=== PATIENT | female | born 1960 | race African-American/Black ===

== ENCOUNTER 2017-03-15 12:29 | Emergency (ER) | payer MEDICAID ==
[~2017-03-15] VITALS: Ht 152.4 cm; Wt 76.0 kg
[2017-03-15 19:26] LABS: CLARITY URINE CLOUDY (CLEAR); COLOR URINE ORANGE (YELLOW); KETONES URINE 1+ (NEGATIVE); LEUKOCYTE ESTERASE URINE TRACE (NEGATIVE); NITRITE URINE NEGATIVE (NEGATIVE); OCCULT BLOOD URINE 3+ (NEGATIVE); PH URINE 5.5 (4.5-8.0); PROTEIN URINE 3+ (NEGATIVE)
[2017-03-15] MEDS ORDERED: IBUPROFEN 400MG TABLET PO ONE (20:15)
[2017-03-15 20:33] LABS: BASOPHILS % 0.4 % (0.0-2.0); EOSINOPHILS % 2.3 % (0.0-5.0); HEMATOCRIT. 30.2 % (36.0-48.0); HEMOGLOBIN. 9.6 g/dL (12.0-16.0); LYMPHOCYTES % 25.2 % (20.0-50.0); MEAN CORPUSCULAR HEMOGLOBIN 22.2 pg (28.0-32.0); MEAN CORPUSCULAR VOLUME 69.4 fL (81.0-99.0); MEAN PLATELET VOLUME 7.9 fl (7.4-10.4); MONOCYTES % 9.7 % (2.0-8.0); NEUTROPHILS % 62.4 % (40.0-76.0); PLATELET 282 x1000/uL (130-400); RED BLOOD CELL COUNT 4.35 mill/uL (4.2-5.4); RED CELL DISTRIBUTION WIDTH 18.6 % (11.6-14.6)
[2017-03-15 20:38] LABS: CHLORIDE 108 mEq/L (98-107)
[2017-03-15 20:43] LABS: CARBON DIOXIDE 24 mEq/L (21-32)
[2017-03-15 22:30] VITALS: BP 152/77
== END 2017-03-15 22:32 | disposition home or self-care (01) ==
LOC: ER 15:21
DX: N93.9 Abnormal uterine and vaginal bleeding, unspecified (principal); D64.9 Anemia, unspecified; R03.0 Elevated blood-pressure reading, without diagnosis of hypertension
CPT/HCPCS: 36415; 80048; 81001; 81025; 85025; 99284

== ENCOUNTER 2017-10-13 11:01 | Emergency (ER) | payer MEDICAID ==
[~2017-10-13] VITALS: Ht 152.4 cm; Wt 77.0 kg
[2017-10-13 11:50] LABS: BASOPHILS % 0.2 % (0.0-2.0); HEMATOCRIT. 30.9 % (36.0-48.0); HEMOGLOBIN. 9.4 g/dL (12.0-16.0); LYMPHOCYTES % 37.6 % (20.0-50.0); MEAN CORPUSCULAR HEMOGLOBIN 18.8 pg (28.0-32.0); MEAN CORPUSCULAR VOLUME 62.2 fL (81.0-99.0); MEAN PLATELET VOLUME 8.4 fl (7.4-10.4); MONOCYTES % 9.9 % (2.0-8.0); NEUTROPHILS % 50.3 % (40.0-76.0); PLATELET 321 x1000/uL (130-400); RED BLOOD CELL COUNT 4.98 mill/uL (4.2-5.4); RED CELL DISTRIBUTION WIDTH 20.6 % (11.6-14.6)
[2017-10-13 12:00] LABS: CHLORIDE 107 mEq/L (98-107)
[2017-10-13 12:10] LABS: PROTHROMBIN TIME 10.4 sec (9.4-11.6)
[2017-10-13 13:06] LABS: PLATELET ESTIMATE NORMAL
[2017-10-13 13:29] LABS: CLARITY URINE CLEAR (CLEAR); COLOR URINE YELLOW (YELLOW); KETONES URINE NEGATIVE (NEGATIVE); LEUKOCYTE ESTERASE URINE 1+ (NEGATIVE); NITRITE URINE NEGATIVE (NEGATIVE); OCCULT BLOOD URINE NEGATIVE (NEGATIVE); PH URINE 5.5 (4.5-8.0); PROTEIN URINE NEGATIVE (NEGATIVE); SPECIFIC GRAVITY URINE 1.009 (1.005-1.030); UROBILINOGEN URINE 0.2 E.U./dL (0.2-1.0)
[2017-10-13] MEDS ORDERED: SODIUM CHLORIDE 0.9% 1,000 ML IV ONE (14:44)
[2017-10-13] MEDS ORDERED: CEPHALEXIN 500MG CAPSULE PO ONE (15:00)
[2017-10-13 21:39] VITALS: BP 156/68
== END 2017-10-13 21:15 | disposition home or self-care (01) ==
LOC: ER 11:01
DX: R42 Dizziness and giddiness (principal); N39.0 Urinary tract infection, site not specified; D64.9 Anemia, unspecified; D72.819 Decreased white blood cell count, unspecified
CPT/HCPCS: 36415; 71045; 80053; 81003; 83880; 84484; 85025; 85610; 87086; 93005; 96360; 99285; J7030; Z7610